=== PATIENT | female | born 1985 | race Caucasian/White ===

== ENCOUNTER 2024-12-28 10:43 | Emergency (ER) | payer BC, SELFPAY ==
--- OUTSIDE RECORDS SUMMARY | 2024-12-28 10:45 | XMS_ITS | Clinical Summary ---
Author Organization [email or web address] [facility] Address [address] [place] [id number] Care Team Providers Care Flour Blender Name Role Phone Gabbi Weaver Primary Care Provider [phone] Allergies Active Allergy Reactions Criticality Noted Date Comments Penicillins Rash 03/31/2006 Medications multivitamin (MVI) tablet Take 1 tablet by mouth once daily. 0 8 Active sertraline 50 mg tabletIndications: Depression with anxiety Take 1 Tablet (50 mg) by mouth once daily in the morning. 90 Tablet 3 5 Active sertraline (ZOLOFT) 50 mg tabletIndications: Depression with anxiety Take 1 Tablet (50 mg) by mouth every morning. 90 Tablet 3 4 12/13/19 25 Discontinu ed(Reorder (E-cancel not sent)) trimethoprim-polym yxin b (POLYTRIM) ophthalmic solutionIndication s:Acute bacterial conjunctivitis of both eyes Place 1 Drop into both eyes every 4 hours. 10 mL 1 5 12/13/19 25 Discontinu ed(*Patien t states no longer taking) Active Problems Problem Noted Date Diagnosed Date Bradycardia 12/15/2017 Allergic rhinitis, cause unspecified 06/18/2006 Resolved Problems Problem Noted Date Diagnosed Date Resolved Date Pap smear for cervical cancer screening 12/28/2023 12/12/2024 Overview (12/28/2023): 12/2023 NIL/HPV negative Plan: Pap/HPV due 12/2028 Delivery by section for breech presentation 12/15/2017 11/08/2018 Breast feeding status of mother 12/15/2017 11/08/2018 Spontaneous breech delivery 11/04/2017 12/15/2017 Overview (12/08/2017): Added automatically from request for surgery [id number] Vaginal delivery 09/01/2017 11/08/2018 Supervision of other normal , antepartum 05/03/2017 11/08/2018 Overview (05/03/2017): RAFAEL: 12/19/17 per US done at 6w4d FOB: Marilyn Blood Type: A POSITIVE 1st trimester screen: GTT/hgb: GBS status: US: Gender: 1) 2) Alerts: Management plans: Supervision of other normal , antepartum 08/26/2015 11/08/2018 Overview (05/31/2017): 32 yo History of vaginal del x 1 Reg ( 04/24) Spouse: Marilyn History of anxiety/ depression ( no meds) BMI: normal Recommend 25-35# weight gain Desires ultrasound only Depression 05/03/2017 Anxiety disorder 05/03/2017 Encounters Date Type Department Care Team Description 12/28/2024 Nurse Triage [facility] [address] [place] [address] Gabbi Weaver PA Dizziness 12/12/2024 8:15 AM CDT Office Visit [facility] [address] [place] [address] Gabbi Weaver PA Physical (NonFasting) 12/12/2024 Travel 12/09/2024 Travel from Last 3 Months Immunizations Immunization Administration Dates Next Due Human Papilloma Virus Vaccine 09/20/2007, 007,03/14/2007 Influenza A (H1N1), Inactivated 07/12/2009 Influenza, IIV3 (Age >=3 years) 05/09/2016,05/09,07/09/2012 Influenza, IIV4 (=>6mos) MDV 05/03/2016 Influenza,CCIIV4 PRESERV FREE 05/23/2018, 017 Meningococcal Vaccine 03/18/2005 Meningococcal Vaccine (Menomune) 03/18/2005 Tdap 09/29/2017,01/17/2016,05/29/2009 Tuberculin (PPD) 03/14/2007 Family History Medical History Relation Name Comments Good Health Father Guillermo Cancer-breast Maternal Aunt Age 50 Cancer-breast Maternal Grandmother Prema Good Health Mother Alberta Stroke Paternal Uncle Shadi age 60? Relation Name Status Comments Brother Gerald Alive Father Guillermo Alive h chol, htn Maternal Aunt Maternal Grandfather dementi a Maternal Grandmother Prema (Age 60's) breast ca Mother Alberta Alive Paternal Grandfather (Age 40's) brain aneurysm Paternal Grandmother Alive Paternal Uncle Shadi Sister Lucie Alive Son 1 Alive Son 2 Santino Alive Social History Tobacco Use Types Packs/Day Years Used Date Smoking Tobacco: Never Smokeless Tobacco: Never Tobacco Cessation:Counseling Given: Not Answered Alcohol Use Standard Drinks/Week Comments Yes 1 (1 standard drink = 0.6 oz pur e alcohol) PHQ-2 Answer Date Recorded PHQ-2 TOTAL SCORE 0 12/12/2024 Social Connections Answer Date Recorded Do you often feel lonely or isolated from those around you? 0 12/12/2024 Financial Resource Strain Answer Date R ecorded Difficulty of Paying Living Expenses 3 12/12/2024 Difficulty of Paying Living Expenses Not on file 12/12/2024 Food Insecurity Answer Date Recorded Do you worry your food will run out before you are able to buy more? 1 12/12/2024 Transportation Needs Answer Date Record ed Does lack of transportation keep you from medica l appointments? 1 12/12/2024 Does lack of transportation keep you from work, meetings or getting things that you need? 1 12/12/2024 Housing Stability Answer Date Recorded What is your housing situation today? 1 12/12/2024 Utilities Answer Date Recorded Do you have trouble paying f or utilities (for example, heat, electricity, water, phone)? 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 on file Not on file No t on file Obstetrics History Para Term AB IAB SAB Ectopic Multiple Livin g Live Births 2 2 2 0 0 0 0 0 0 2 2 Date Outcome GA Total Labor Labor/2nd/3rd Weight Sex Type Anes PTL Mine A1 A5 Name Clin 2015 Term 40w 6d M Vag N Livin g Reg james MD Delivery Location:[place] 2017 Term 39w 3d M C-Sec tion Spinal N Livin g Santino [address] rd Complications:None Delivery Location:[facility] Last Filed Vital Signs Vital Sign Reading Time Taken Comments Blood Pressure 92/64 12/12/2024 8:21 AM CDT Pulse 69 12/12/2024 8:21 AM CDT Temperature 36.3 C (97.4 F) 12/10/2023 3:39 PM CDT Respiratory Rate 18 11/16/2021 8:14 AM CDT Oxygen Saturation 98% 12/12/2024 8:21 AM CDT Inhaled Oxygen Concentration - - Weight 79.4 kg (175 lb) 12/12/2024 8:21 AM CDT Height 176.2 cm (5' 9.37) 12/15/2023 8:22 AM CD T Body Mass Index 25.57 12/15/2023 8:22 AM CDT Plan of Treatment Upcoming Encounters Date Type Department Care Team (Late st Contact Info) Description 01/11/2025 10:15 AM CDT Appointment [facility] [place] [address] [facility] [address] [place], [place] [id number] [place] [address] [facility] [address] [place], [place] [id number] Health Maintenance Due Date Last Done Comments Hepatitis B series for 19+ (1 of 3 - 19+ 3-dose series) 2005 COVID-19 vaccine series (2023- season) 2024 09/16/2020, 08/19/2020 BMI (ht and wt on same day) for age 18+ 12/14/2024 12/15/2023, 12/10/2023, 09/04/2022, Additional history exists Influenza Vaccine (Season Ended) 2025 05/23/2018, 05/24/2017, 05/09/2016, Additional history exists Depression screening for age 12+ 12/12/2025 12/12/2024 Tetanus booster 09/29/2027 09/29/2017, 01/07, 05/29/2009 Pap test for age 21-65 12/14/2028 , 12/15/2023, 05/09/2020, Additional history exists HIV for age 15-65 Completed 05/03/2017, 08/26/2015 Tdap Completed 09/29/2017, 01/07, 05/29/2009 Hepatitis C screening for age 18-79 Completed 12/15/2023 Pneumococcal series for age 6-49 Aged Out No longer eligible based on patient's age to complete this topic Procedures Procedure Name Priority Date/Time Associated Diagnosis Comments ANTI HCV Routine 12/15/2023 9:10 AM CDT Encounter for hepatitis C screening test for low risk patient CINETECHNICIAN THIN PREP PAP SCREEN IMAGED Routine 12/15/2023 8:50 AM CDT Screening for malignant neoplasm of cervix ANTI HIV 1/2 Routine 05/03/2017 9:11 AM CDT Supervision of other normal , antepartum (HC) from Last 3 Months or Most Recently Relevant to Health Maintenance Results * ANTI HCV [54996.2] (12/15/2023 9:10 AM CDT) HEPATITIS C ANTIBODY Non-Reacti ve Non-React carole 12/15/2023 6:26 PM CDT [facility] Comment:Please note, per www .CDC.gov: If a patient is known to be at high risk of HCV infection, or is symptomatic, and the physician's suspicion of HCV infection is high, HCV RNA testing is often employed and is of diagnostic value, even after an initial negative anti-HCV test result. Blood BLOOD SPECIMEN / Unknown Venipuncture / Unknown 12/15/2023 9:10 AM CDT 12/15/2023 9:11 AM CDT us Gabbi BELL SEND OUTS Final Res ult [facility] [address] [place] [address], [place] * CINETECHNICIAN THIN PREP PAP SCREEN IMAGED [[id number]] (12/15/2023 8:50 AM CDT) Case Report Gynecologic Cytology Report Case: [id number] Authorizing Provider: Gabbi Weaver PA Collected: 12/15/2023 0850 Ordering Location: [facility] Received: 12/15/2023 0937 Clinic First Screen: Dung Ornelas Specimen: CINETECHNICIAN ThinPrep Vial Screening, Cervical 12/28/2023 12:54 PM CDT [facility] INTERPRETATION/ RESULT NEGATIVE FOR INTRAEPITHELIAL LESION OR MALIGNANCY (NIL) (none) 12/28/2023 12:54 PM CDT [facility] at 1254 CDT SPECIMEN ADEQUACY Satisfactory for evaluation Endocervical component present 12/28/2023 12:54 PM CDT [facility] HPV REQUEST HPV and PAP 12/28/2023 12:54 PM CDT [facility] Date of LMP 11/21/23 12/28/2023 12:54 PM CDT [facility] Last Pap Date 05/09/20 12/28/2023 12:54 PM CDT [facility] Last Pap Result NIL 12:54 PM CDT [facility] Abnormal Pap or [place] Bx in last 5 years No 12/28/2023 12:54 PM CDT [facility] Menstrual Status Regular Periods 12/28/2023 12:54 PM CDT [facility] [place] Bx Done Today No 12/28/2023 12:54 PM CDT [facility] Additional Information None given 12/28/2023 12:54 PM CDT [facility] Comment: Cytology is screened at [facility] - [address], [place] [address] and [facility] - [address], [place] [address] and [facility] - [address] [place] [address] Interpreted at [facility] - [address] [place] [address] Automated Review Successful 12/28/2023 12:54 PM CDT [facility] Comment:Specimen processed s uccessfully by automated boat outboard engine mechanic device, [employer] System, [employer] ANCILLARY TESTING CINETECHNICIAN HPV Ordered, Please see separate report 12/28/2023 12:54 PM CDT [facility] Note The pap test is a screening technique, not a diagnostic procedure. It is used primarily to screen for squamous cancers and precursor lesions. Published studies have shown that it is subject to both false negative and false positive results. The pap test should not be used as the sole means to diagnose or exclude pre-malignant and malignant lesions. 12/28/2023 12:54 PM CDT [facility] Other (Cervical) Non-Blood / Unknown 12/15/2023 8:50 AM CDT 12/15/2023 9:37 AM CDT Gabbi BELL PATHOLOGY/CYTOLOGY Final Result [facility] [address] [place] [address], * ANTI HIV 1/2 (05/03/2017 9:11 AM CDT) HIV-1/HIV-2 ANTIBODY Non-Reacti ve Non-Reacti ve 05/03/2017 4:21 PM CDT [facility] TR[facility] LAB[facility]AT[facility] Blood BLOOD SPECIMEN / Unknown Venipuncture / Unknown 05/03/2017 9:11 AM CDT 05/03/2017 9:11 AM CDT Narrative [facility] - 05/03/2017 4:21 PM CDT HIV-1 p24 and HIV-1/HIV-2 Ab not detected us Sandie Wyman WEB DEVELOPMENT INSTRUCTOR SEND OUTS Final Re sult [facility] [address] [place] [address], from Last 3 Months or Most Recently Relevant to Health Maintenance Insurance [facility] Advance Directives Documents on File Type Date Recorded Patient Ophthalmic Medical Assistant Expl anation Healthcare Directive 11/10/2017 7:35 AM [facility]C[employer] DIRECTIVE * Full Code (Latest Code Status on File) Date Activated Date Inactivated Comments 12/15/2017 5:43 AM 12/17/2017 3:22 PM * Full Code Date Activated Date Inactivated Comments 04/16/2016 1:20 AM 04/17/2016 3:50 PM * Full Code Date Activated Date Inactivated Comments 04/15/2016 9:18 PM 04/16/2016 1:20 AM * Full Code Date Activated Date Inactivated Comments 04/15/2016 8:04 PM 04/15/2016 9:18 PM Care Teams Flour Blender Relationship Specialty Start Date End Date Gabbi Weaver PA [address] [place] [id number] PCP - General Physician Alining Inspector 12/15/23
[2024-12-28 10:50] VITALS: BP 116/77; PULSE 84; RESP 16; TEMP 36.8; O2SAT 98; BMI 25.1
--- NOTE | 2024-12-28 11:51 | ED.GENADULT ---
HPI - General Adult General Chief complaint: Dizziness/Vertigo Stated complaint: dizziness, nausea Time Seen by Provider: 12/28/24 11:32 Source: patient Mode of arrival: ambulatory Limitations: no limitations History of Present Illness HPI narrative: 39-year-old female, generally healthy, presents today vertigo. Patient states that it started around 4:30 in the morning when she woke up in the room was immediately spinning around her. She states that it has been constant ever since. She has vomited in feels very nauseated. She denies fevers or chills. No recent illness. She denies a headache or neck pain. She denies a getting worse if she looks from 1 side to the other. It does not get better if she closes her eyes. Is never happened to her before. She has a hard time walking in a straight line. Patient denies any recent alcohol use. Denies . No recent traveling or surgery. She denies any changes in her hearing. She denies double vision. She has a hard time focusing her vision. She denies any ringing in her ears. She denies any recent congestion or cough. No confusion, no word-finding difficulty. Related Data Home Medications ?Medication ?Instructions ?Recorded ?Confirmed sertraline 50 mg tablet 50 mg PO DAILY 07/19/24 12/28/24 Previous Rx's ?Medication ?Instructions ?Recorded meclizine 25 mg tablet 25 mg PO QID PRN #20 tabs 12/28/24 ondansetron HCl 4 mg tablet 4 mg PO TID PRN nausea and 12/28/24 vomiting #10 tabs Allergies Allergy/AdvReac Type Severity Reaction Status Date / Time Penicillins Allergy Verified 12/28/24 10:56 Review of Systems Status of ROS: Reports: 10 or more systems reviewed and unremarkable except as noted in History and below Exam Narrative: Exam Narrative: Well-nourished well-developed patient lying in the position with her eyes closed when I walk in the room. Alert and oriented x3. Answers questions appropriately. Mood and affect are appropriate. Thoughts are goal oriented and rational. No tangential or magical thinking noted. Patient speaks in full sentences without needing to catch her breath. HEENT: Normocephalic atraumatic. Pupils are equally round reactive to light. Extraocular muscles are intact. Conjunctivae are moist without any icterus noted. Moist mucous membranes. Posterior pharynx is normal. Neck is soft without any lymphadenopathy or thyromegaly. No masses are appreciated. TMs are clear bilaterally. Normal facial symmetry. Cardiovascular: Heart is regular rate and rhythm S1 and S2 are present without any murmurs. Lungs: Clear to auscultation bilaterally no wheezes rhonchi or rales are appreciated. Patient takes deep breaths without any discomfort. Abdomen: Soft and nontender nondistended with normal bowel sounds. Extremities: Bilateral lower extremities are without edema. Skin: Well perfused without any obvious rashes. Strength is 5/5 of the upper and lower extremities. Reflexes are 2+ and symmetric at the knees. Cranial nerves 3-12 are grossly normal. [id number] is normal. There is no nystagmus either horizontally or vertically. Hallpike maneuver does not aggravate her symptoms. There is no vertical deviation on test of skew. Saccade absent on head impulse testing. Const: Vital Signs, click to edit/add: Vital Signs - 24 hr 12/28/24 10:50 12/28/24 13:06 Temperature 98.3 F 98.3 F Pulse Rate [Right Pulse Oximeter] 84 60 Respiratory Rate 16 16 Blood Pressure [Ri ght Upper Arm] 116/77 103/68 Pulse Oximetry 98 99 Oxygen Delivery Me thod Room Air Room Air Course Course ED Course: Consulted with Dr. Quigley, stroke neurologist at [facility] - brain MRI recommended. In the meantime home EKG, read by me, shows sinus bradycardia with a pulse of 58, normal QRS and HI intervals. Normal QTC. IV established and patient received a L of normal saline and IV Zofran. CBC unremarkable. Normal chemistries. Glucose 117. Normal LFTs. Normal CRP. Normal TSH MRI showing enlarged pituitary gland. Discussed with Dr. Quigley, recommends outpt follow up for monitoring. Vertigo likely peripheral: Differential diagnoses includes vestibular neuritis, vestibular migraine. Patient was actually feeling better after fluids and Zofran. Vital Signs Vital signs: Initial Vital Signs Temperature 98.3 F 12/28/24 10:50 Temperature Source Temporal Artery Scan 12/28/24 10:50 Pulse Rate 84 12/28/24 10:50 Pulse Rhythm Regular 12/28/24 10:50 Pulse Strength 3+ Normal 12/28/24 10:50 Respiratory Rate 16 12/28/24 10:50 Blood Pressure 116/77 12/28/24 10:50 Blood Pressure Mean 90 12/28/24 10:50 Blood Pressure Position Sitting 12/28/24 10:50 Pulse Oximetry 98 12/28/24 10:50 Oxygen Delivery Method Room Air 12/28/24 10:50 Vital Signs Temperature 98.3 F 12/28/24 10:50 Pulse Rate 84 12/28/24 10:50 Respiratory Rate 16 12/28/24 10:50 Blood Pressure 116/77 12/28/24 10:50 Pulse Oximetry 98 12/28/24 10:50 Oxygen Delivery Method Room Air 12/28/24 10:50 Temperature 98.3 F 12/28/24 13:06 Pulse Rate 60 12/28/24 13:06 Respiratory Rate 16 12/28/24 13:06 Blood Pressure 103/68 12/28/24 13:06 Pulse Oximetry 99 12/28/24 13:06 Oxygen Delivery Method Room Air 12/28/24 13:06 Medications Administered Medications: Discontinued Medications Generic Name Dose Route Start Last Admin Trade Name Freq PRN Reason Stop Dose Admin Sodium Chloride 1,000 mls @ 1,000 mls/hr 12/28/24 12:00 12/28/24 14:46 0.9 % Sodium Chloride 1000 Ml IV 12/28/24 12:59 Infused .Q1H ALYSSA Infusion Ondansetron HCl 4 mg 12/28/24 11:46 12/28/24 12:00 Ondansetron 2 Mg/Ml Inj IVP 12/28/24 11:47 4 mg ONCE ONE Administration Medical Decision Making MDM Narrative Medical decision making narrative: 39-year-old female with vertigo, likely peripheral in nature. Workup unremarkable. Will treat with meclizine and Zofran. Lab Data Lab results reviewed: Yes I reviewed the patient's lab results Labs: Lab Results 12/28/24 12/28/24 Range/Units 12:10 13:31 WBC 7.52 (4.50-11.00) K/uL RBC 3.99 L (4.00-5.20) m/uL Hgb 12.2 (12.0-16.0) gm/dL Hct 36.3 (33.0-51.0) % MCV 91 (80-100) fL MCH 31 (26-34) pg MCHC 34 (32-36) gm/dL RDW Coeff of Durga 12.4 (11.5-15.5) % Plt Count 291 (140-440) K/uL Neut % (Auto) 86.7 H (42.0-72.0) % Lymph % (Auto) 10.4 L (20-44) % Boone % (Auto) 2.1 (0.0-11.0) % Eos % (Auto) 0.3 (0.0-7.0) % Baso % (Auto) 0.4 (0.0-3.0) % Neut # (Auto) 6.50 (1.7-7.0) K/uL Lymph # (Auto) 0.80 L (0.90-2.90) K/uL Boone # (Auto) 0.20 (0.00-0.90) K/UL Eos # (Auto) 0.02 (0.00-0.50) K/uL Baso # (Auto) 0.03 (0.00-0.30) K/uL Abs Immat Gran (auto) 0.01 (0.00-0.30) K/uL Imm/Tot Granulo (auto) 0.1 % Sodium 138 (135-149) mmol/L Potassium 4.0 (3.6-5.1) mmol/L Chloride 106 (96-114) mmol/L Carbon Dioxide 25 (20-32) mmol/L Anion Gap 7 (7-15) mEq/L BUN 19 (5-24) mg/dL Creatinine 0.8 (0.5-1.5) mg/dL Estimated Creat Clear 99.64 Estimated GFR 97 ml/min Glucose 117 H (60-115) mg/dL Lactate 0.8 (0.5-1.9) mmol/L Calcium 9.0 (8.4-10.6) mg/dL Total Bilirubin 0.5 (0.1-1.5) mg/dL Direct Bilirubin 0.2 (0.0-0.5) mg/dL AST 27 (12-35) U/L ALT 18 (4-35) U/L Alkaline Phosphatase 54 (40-150) U/L C-Reactive Protein < 0.5 L (0.5-1.0) mg/dL Total Protein 7.4 (6.0-8.3) g/dL Albumin 4.6 (3.3-5.0) g/dL TSH 1.770 (0.270-4.20) uIU/mL Urine Color Yellow (Yellow) Urine Appearance Clear (Clear) Urine pH 8.0 (5.0-8.5) Ur Specific [place] 1.015 (1.000-1.030) Urine Protein Negative (Negative) Urine Glucose (UA) Negative (Negative) Urine Ketones Negative (Negative) Urine Blood Negative (Negative) Urine Nitrite Negative (Negative) Urine Bilirubin Negative (Negative) Urine Urobilinogen 0.2 (0.2-1.0) Ur Leukocyte Esterase Negative (Negative) Urine RBC 0-2 (0-2) Urine WBC 0-2 (0-5) Ur Squamous Epith Cells Few (None-Few) Amorphous Sediment Moderate A (None) Urine Bacteria Few A (None) Urine HCG, Qual Negative (Negative) Imaging Data MRI - head: Attestation: I have reviewed the pertinent imaging results. Radiologist's impression: [facility] TECHNIQUE: Multisequence multiplanar MRI of the brain without the use of intravenous contrast. COMPARISON: None available. FINDINGS: No evidence of acute ischemia. Few punctate foci of T2 prolongation within the white matter of the frontal lobes. No focus of abnormal susceptibility artifact. The pituitary gland is enlarged, extending into the suprasellar cistern and measuring up to 15 mm in craniocaudal dimension. The ventricles are normal in size. Flow voids of the larger intracranial arteries are preserved. Normal calvarial bone marrow signal intensity. Unremarkable orbits. The paranasal sinuses and mastoid air cells are predominantly clear. IMPRESSION: 1. No acute intracranial abnormality. 2. Enlarged pituitary gland extending into the suprasellar cistern raising concern for underlying macro adenoma. Recommend dedicated pituitary protocol MRI for further characterization. 3. Few scattered punctate foci of T2 prolongation within the white matter of the frontal lobes, nonspecific, but commonly seen in the setting of chronic migraine headaches or mild chronic small-vessel ischemic changes. ECG Data Attestation: I personally reviewed and interpreted this ECG as follows: Discharge Plan Discharge Clinical Impression: Vertigo Patient Disposition: Home, Self-Care Condition: Stable Instructions: Vertigo (ED) Additional Instructions: Make sure to stay well hydrated. Take meclizine as needed/as prescribed. Dizziness can last a couple of weeks before it gets better. Do not drive a car until you were better. Recommend follow-up with your primary care provider early next week if dizziness remains over the weekend. MRI showed enlarged pituitary gland. You should follow-up with your primary care provider in the next 1-2 weeks to discuss follow-up for this. Prescriptions: New meclizine 25 mg tablet 25 mg PO QID PRNQty: 20 0RF ondansetron HCl 4 mg tablet 4 mg PO TID PRN (Reason: nausea and vomiting) Qty: 10 0RF No Action sertraline 50 mg tablet 50 mg PO DAILY Follow Up/Referrals: Provider,Not a Local [Non-Staff, Family Practice] Stand Alone Forms: AddressHealthth Info Instructions
[2024-12-28] MEDS: ONDANSETRON 2 MG/ML inj 4 MG IVP (12:00)
[2024-12-28] MEDS: 0.9 % SODIUM CHLORIDE 1000 ml 1,000 ML IV (12:00)
--- NOTE | 2024-12-28 12:01 | CRLHL7_ITS ---
For Patients: As a result of the Century Cures Act, medical imaging exams and procedure reports are released immediately into your electronic medical record. You may view this report before your referring provider. If you have questions, please contact your health care provider. INDICATION: Vertigo. TECHNIQUE: Multisequence multiplanar MRI of the brain without the use of intravenous contrast. COMPARISON: None available. FINDINGS: No evidence of acute ischemia. Few punctate foci of T2 prolongation within the white matter of the frontal lobes. No focus of abnormal susceptibility artifact. The pituitary gland is enlarged, extending into the suprasellar cistern and measuring up to 15 mm in craniocaudal dimension. The ventricles are normal in size. Flow voids of the larger intracranial arteries are preserved. Normal calvarial bone marrow signal intensity. Unremarkable orbits. The paranasal sinuses and mastoid air cells are predominantly clear. IMPRESSION: 1. No acute intracranial abnormality. 2. Enlarged pituitary gland extending into the suprasellar cistern raising concern for underlying macro adenoma. Recommend dedicated pituitary protocol MRI for further characterization. 3. Few scattered punctate foci of T2 prolongation within the white matter of the frontal lobes, nonspecific, but commonly seen in the setting of chronic migraine headaches or mild chronic small-vessel ischemic changes. Dictated by Ulises Hood MD @ 12/28/2024 1:32:48 PM (Electronically Signed)
[2024-12-28 12:14] LABS: Lactate* 0.8 mmol/L (0.5-1.9)
[2024-12-28 12:15] LABS: Basophils Absolute Auto 0.03 K/uL (0.00-0.30); Basophils Percent Auto 0.4 % (0.0-3.0); Eosinophils Absolute Auto 0.02 K/uL (0.00-0.50); Eosinophils Percent Auto 0.3 % (0.0-7.0); Hematocrit 36.3 % (33.0-51.0); Hemoglobin* 12.2 gm/dL (12.0-16.0); Immature Granulocytes Abs Auto 0.01 K/uL (0.00-0.30); Immature Granulocytes Pct Auto 0.1 %; Lymphocytes Percent Auto 10.4 % (20-44); Mean Corpuscular HGB Conc 34 gm/dL (32-36); Mean Corpuscular Hemoglobin 31 pg (26-34); Mean Corpuscular Volume 91 fL (80-100); Monocytes Percent Auto 2.1 % (0.0-11.0); Neutrophils Percent Auto 86.7 % (42.0-72.0); Platelet Count* 291 K/uL (140-440); RDW Coefficient of Variation % 12.4 % (11.5-15.5); Red Blood Count 3.99 m/uL (4.00-5.20); White Blood Count* 7.52 K/uL (4.50-11.00)
[2024-12-28 12:17] LABS: Slide Review Reflex No
[2024-12-28 12:37] LABS: Albumin* 4.6 g/dL (3.3-5.0); Chloride* 106 mmol/L (96-114); Sodium* 138 mmol/L (135-149)
[2024-12-28 12:40] LABS: Alanine Aminotransferase* 18 U/L (4-35); Alkaline Phosphatase* 54 U/L (40-150); Anion Gap 7 mEq/L (7-15); Aspartate Amino Transferase* 27 U/L (12-35); Bilirubin Direct* 0.2 mg/dL (0.0-0.5); Bilirubin Total* 0.5 mg/dL (0.1-1.5); Blood Urea Nitrogen* 19 mg/dL (5-24); Carbon Dioxide* 25 mmol/L (20-32); Creatinine* 0.8 mg/dL (0.5-1.5); Est. Creatinine Clearance* 99.64; Estimated Glomerular Filt Rate 97 ml/min; Total Protein* 7.4 g/dL (6.0-8.3)
[2024-12-28 12:41] LABS: Glucose* 117 mg/dL (60-115)
[2024-12-28 12:49] LABS: C Reactive Protein* < 0.5 mg/dL (0.5-1.0)
[2024-12-28 13:06] VITALS: BP 103/68; PULSE 60; RESP 16; TEMP 36.8; O2SAT 99
[2024-12-28 13:37] LABS: Appearance Urine Clear (Clear); Bilirubin Urine Negative (Negative); Blood Urine Negative (Negative); Color Urine Yellow (Yellow); Glucose Urine Negative (Negative); Ketones Urine Negative (Negative); Leukocyte Esterase Urine Negative (Negative); Nitrite Urine Negative (Negative); Protein Urine Negative (Negative); Specific Gravity Urine 1.015 (1.000-1.030); Urobilinogen Urine 0.2 (0.2-1.0)
[2024-12-28 13:46] LABS: Amorphous Sediment Urine Moderate; Bacteria Urine Few; RBC Urine 0-2 (0-2); Squamous Epithelial Cell Urine Few (None-Few); Ur HCG Qualitative* Negative (Negative); WBC Urine 0-2 (0-5)
[2024-12-28 15:01] VITALS: BP 101/68; PULSE 62; RESP 16
== END 2024-12-28 15:02 | disposition home or self-care (01) ==
PROVIDERS: Emergency Provider Family Medicine; PCP Student in an Organized Health Care Education/Training Program
DX: R42 Dizziness and giddiness (principal); R11.2 Nausea with vomiting, unspecified; R00.1 Bradycardia, unspecified
CPT/HCPCS: 36415; 70551; 80048; 80076; 81001; 81025; 83605; 84443; 85025; 86140; 87086; 93005; 96361; 96374; 99284; 99285; J2405; J7030